=== PATIENT | female | born 1950 | race African-American/Black ===

== ENCOUNTER → 2019-06-25 | Outpatient (CLI) | payer MEDICARE, MEDICAID ==
[~2019-06-25] MED LIST: CARV25TA47 MT; MEGE20TA6 MT; METO-385 MT; NIFE-32 PO
== END | disposition home or self-care (01) ==
LOC: EDBD → RAD 11:43
PROVIDERS: ATTEND Internal Medicine Nephrology
DX: M79.605 Pain in left leg (principal)
CPT/HCPCS: 93970

== ENCOUNTER 2019-07-17 21:15 | Inpatient (IN) | payer MEDICARE, MEDICAID ==
[~2019-07-17] VITALS: Ht 160 cm; Wt 48.5 kg
[2019-07-17 20:00] VITALS: BP 140/78
[2019-07-17 21:30] VITALS: BP 140/78
[2019-07-17] MEDS ORDERED: MORPHINE SULFATE 2 MG/ML CPJ (NOT FOR IM USE) IV PRN (22:45)
[2019-07-17] MEDS ORDERED: HYDRALAZINE 20MG/ML VIAL IV PRN (23:00)
[2019-07-17] MEDS ORDERED: ONDANSETRON HCL 4MG/2ML INJ IV PRN (23:00)
[2019-07-17] MEDS ORDERED: GUAIFENESIN 200MG/10ML SUGAR FREE UDC PO PRN (23:00)
[2019-07-17] MEDS ORDERED: MAGNESIUM/ALUMINUM HYDROXIDE/SIMETHICONE 30ML UDC PO PRN (23:00)
[2019-07-17] MEDS ORDERED: IPRATROPIUM/ALBUTEROL 0.5-3(2.5)MG/3ML NEB HHN PRN (23:00)
[2019-07-17] MEDS ORDERED: CLONIDINE 0.1MG TABLET PO PRN (23:00)
[2019-07-17] MEDS ORDERED: HYDRALAZINE 10 MG in SODIUM CHLORIDE 0.9% 49.5 ML IV PRN (23:30)
[2019-07-17] MEDS ORDERED: DIPHENHYDRAMINE 25MG CAPSULE PO PRN (23:30)
[2019-07-18] MEDS: DILTIAZEM HCL 30MG TABLET PO SCH ×5 (00:50→23:51)
[2019-07-18] MEDS: POTASSIUM CHLORIDE INJ 10 MEQ in SODIUM CHLORIDE 0.9% 1,000 ML IV SCH ×2 (00:50→14:00)
[2019-07-18] MEDS: IPRATROPIUM/ALBUTEROL 0.5-3(2.5)MG/3ML NEB HHN SCH ×4 (01:04→21:58)
[2019-07-18] MEDS: ACETAMINOPHEN 325MG TABLET PO PRN ×2 (01:10→22:54)
[2019-07-18] MEDS: HYDROCODONE/ACETAMINOPHEN 10/325MG TABLET PO PRN ×3 (05:50→19:55)
[2019-07-18] MEDS: GABAPENTIN 100MG CAPSULE PO SCH ×3 (05:50→21:30)
[2019-07-18] MEDS: OMEPRAZOLE 20MG CAPSULE EXTENDED RELEASE PO SCH (06:50)
[2019-07-18 07:09] LABS: HEMATOCRIT. 30.4 % (36.0-48.0); HEMOGLOBIN. 10.5 g/dL (12.0-16.0); MEAN CORPUSCULAR HEMOGLOBIN 34.6 pg (28.0-32.0); MEAN CORPUSCULAR VOLUME 100.3 fL (81.0-99.0); MEAN PLATELET VOLUME 9.9 fl (7.4-10.4); PLATELET 118 x1000/uL (130-400); RED BLOOD CELL COUNT 3.03 mill/uL (4.2-5.4); RED CELL DISTRIBUTION WIDTH 15.2 % (11.6-14.6)
[2019-07-18 07:18] LABS: CHLORIDE 106 mEq/L (98-107)
[2019-07-18 07:26] LABS: PHOSPHORUS 2.5 mg/dL (2.5-4.9)
[2019-07-18 08:16] VITALS: BP 114/61
[2019-07-18] MEDS: GUAIFENESIN 600MG ER TABLET PO SCH ×2 (09:51→21:29)
[2019-07-18] MEDS: METHIMAZOLE 5MG TABLET PO SCH (09:52)
[2019-07-18] MEDS: FUROSEMIDE 20MG TABLET PO SCH ×2 (09:52→21:30)
[2019-07-18] MEDS: BENAZEPRIL 10MG TABLET PO SCH ×2 (09:53→21:29)
[2019-07-18] MEDS: DEXAMETHASONE 4MG TABLET PO SCH ×3 (09:53→16:21)
[2019-07-18] MEDS: POTASSIUM CHLORIDE 20MEQ TABLET SR PO SCH ×2 (09:53→16:21)
[2019-07-18] MEDS: CARVEDILOL 12.5MG TABLET PO SCH ×2 (09:53→22:54)
[2019-07-18 10:13] LABS: PLATELET ESTIMATE SLIGHTLY DECREASED
[2019-07-18] MEDS ORDERED: NA PHOS,M-B/NA PHOS,DI-BA ENEMA 118ML PR ONE (11:45)
[2019-07-18] MEDS ORDERED: LACTULOSE 20G/30ML UDC PO PRN (13:00)
[2019-07-18] MEDS: LACTULOSE 20G/30ML UDC PO SCH ×2 (16:21→19:56)
[2019-07-18 20:00] VITALS: BP 126/67
[2019-07-19] MEDS: LACTULOSE 20G/30ML UDC PO SCH
[2019-07-19] MEDS: POTASSIUM CHLORIDE INJ 10 MEQ in SODIUM CHLORIDE 0.9% 1,000 ML IV SCH ×2 (01:46→13:06)
[2019-07-19] MEDS: ACETAMINOPHEN 325MG TABLET PO PRN (04:29)
[2019-07-19] MEDS: HYDROCODONE/ACETAMINOPHEN 10/325MG TABLET PO PRN ×2 (05:50→15:23)
[2019-07-19] MEDS: GABAPENTIN 100MG CAPSULE PO SCH ×3 (05:50→21:03)
[2019-07-19] MEDS: OMEPRAZOLE 20MG CAPSULE EXTENDED RELEASE PO SCH (07:01)
[2019-07-19] MEDS: DILTIAZEM HCL 30MG TABLET PO SCH ×4 (07:04→23:15)
[2019-07-19 08:05] VITALS: BP 146/69
[2019-07-19] MEDS: CARVEDILOL 12.5MG TABLET PO SCH ×2 (09:32→21:02)
[2019-07-19] MEDS: GUAIFENESIN 600MG ER TABLET PO SCH ×2 (09:32→21:03)
[2019-07-19] MEDS: FUROSEMIDE 20MG TABLET PO SCH ×2 (09:32→21:02)
[2019-07-19] MEDS: POTASSIUM CHLORIDE 20MEQ TABLET SR PO SCH ×2 (09:32→17:00)
[2019-07-19] MEDS: BENAZEPRIL 10MG TABLET PO SCH ×2 (09:32→21:02)
[2019-07-19] MEDS: DOCUSATE SODIUM 100MG CAPSULE PO SCH (09:33)
[2019-07-19] MEDS: METHIMAZOLE 5MG TABLET PO SCH (09:33)
[2019-07-19] MEDS: DEXAMETHASONE 4MG TABLET PO SCH ×3 (09:33→17:36)
[2019-07-19 10:45] VITALS: BP 125/65
[2019-07-19] MEDS ORDERED: HYDROCODONE/ACETAMINOPHEN 5/325MG TABLET PO PRN (11:00)
[2019-07-19 14:40] VITALS: BP 136/70
[2019-07-19 20:00] VITALS: BP 155/76
[2019-07-19] MEDS: MORPHINE SULFATE 15MG TABLET SR PO SCH (21:03)
[2019-07-19] MEDS: IPRATROPIUM/ALBUTEROL 0.5-3(2.5)MG/3ML NEB HHN SCH (22:26)
[2019-07-19] MEDS: OXYCODONE HCL 5MG TABLET PO PRN (23:07)
[2019-07-20] MEDS: POTASSIUM CHLORIDE INJ 10 MEQ in SODIUM CHLORIDE 0.9% 1,000 ML IV SCH ×2 (00:52→12:34)
[2019-07-20] MEDS: IPRATROPIUM/ALBUTEROL 0.5-3(2.5)MG/3ML NEB HHN SCH ×4 (03:00→20:52)
[2019-07-20] MEDS: OXYCODONE HCL 5MG TABLET PO PRN (03:07)
[2019-07-20] MEDS: MORPHINE SULFATE 4 MG/ML CPJ (NOT FOR IM USE) IV PRN ×2 (04:27→12:35)
[2019-07-20] MEDS: GABAPENTIN 100MG CAPSULE PO SCH ×3 (06:01→21:34)
[2019-07-20] MEDS: OMEPRAZOLE 20MG CAPSULE EXTENDED RELEASE PO SCH (06:01)
[2019-07-20] MEDS: DILTIAZEM HCL 30MG TABLET PO SCH ×3 (06:02→18:03)
[2019-07-20 07:05] LABS: HEMATOCRIT. 26.7 % (36.0-48.0); HEMOGLOBIN. 9.3 g/dL (12.0-16.0); MEAN CORPUSCULAR HEMOGLOBIN 34.5 pg (28.0-32.0); MEAN CORPUSCULAR VOLUME 99.2 fL (81.0-99.0); MEAN PLATELET VOLUME 9.4 fl (7.4-10.4); PLATELET 109 x1000/uL (130-400); RED BLOOD CELL COUNT 2.69 mill/uL (4.2-5.4); RED CELL DISTRIBUTION WIDTH 14.5 % (11.6-14.6)
[2019-07-20 07:28] LABS: CHLORIDE 103 mEq/L (98-107)
[2019-07-20 07:35] LABS: PHOSPHORUS 2.4 mg/dL (2.5-4.9)
[2019-07-20 08:00] VITALS: BP 160/67
[2019-07-20] MEDS: DOCUSATE SODIUM 100MG CAPSULE PO SCH (09:09)
[2019-07-20] MEDS: CARVEDILOL 12.5MG TABLET PO SCH ×2 (09:09→21:35)
[2019-07-20] MEDS: GUAIFENESIN 600MG ER TABLET PO SCH ×2 (09:09→21:35)
[2019-07-20] MEDS: FUROSEMIDE 20MG TABLET PO SCH ×2 (09:09→21:35)
[2019-07-20] MEDS: DEXAMETHASONE 4MG TABLET PO SCH ×3 (09:09→18:02)
[2019-07-20] MEDS: BENAZEPRIL 10MG TABLET PO SCH (09:09)
[2019-07-20] MEDS: POTASSIUM CHLORIDE 20MEQ TABLET SR PO SCH ×2 (09:09→18:02)
[2019-07-20] MEDS: METHIMAZOLE 5MG TABLET PO SCH (09:09)
[2019-07-20] MEDS: MORPHINE SULFATE 15MG TABLET SR PO SCH ×2 (09:10→20:50)
[2019-07-20 10:15] LABS: HEPATITIS B SURFACE ANTIGEN NEGATIVE
[2019-07-20 10:45] LABS: HEPATITIS A AB IGM NEGATIVE (NEGATIVE)
[2019-07-20 14:41] LABS: NUCLEATED RED BLOOD CELLS 1 /100 WBC
[2019-07-20 14:42] LABS: PLATELET ESTIMATE SLIGHTLY DECREASED
[2019-07-20 20:00] VITALS: BP 154/74
[2019-07-21] MEDS: BENAZEPRIL 10MG TABLET PO SCH ×3 (00:01→20:57)
[2019-07-21] MEDS: IPRATROPIUM/ALBUTEROL 0.5-3(2.5)MG/3ML NEB HHN SCH ×4 (01:29→20:52)
[2019-07-21] MEDS: POTASSIUM CHLORIDE INJ 10 MEQ in SODIUM CHLORIDE 0.9% 1,000 ML IV SCH ×2 (02:36→12:50)
[2019-07-21] MEDS: DILTIAZEM HCL 30MG TABLET PO SCH ×5 (06:27→23:23)
[2019-07-21] MEDS: GABAPENTIN 100MG CAPSULE PO SCH ×3 (06:27→21:47)
[2019-07-21] MEDS: OMEPRAZOLE 20MG CAPSULE EXTENDED RELEASE PO SCH (06:27)
[2019-07-21 06:36] LABS: HEMATOCRIT. 28.6 % (36.0-48.0); HEMOGLOBIN. 9.9 g/dL (12.0-16.0); MEAN CORPUSCULAR VOLUME 101.4 fL (81.0-99.0); PLATELET 112 x1000/uL (130-400); RED BLOOD CELL COUNT 2.82 mill/uL (4.2-5.4); RED CELL DISTRIBUTION WIDTH 15.1 % (11.6-14.6)
[2019-07-21 07:09] LABS: CHLORIDE 104 mEq/L (98-107)
[2019-07-21 08:20] VITALS: BP 132/71
[2019-07-21] MEDS: DEXAMETHASONE 4MG TABLET PO SCH ×3 (08:35→17:19)
[2019-07-21] MEDS: DOCUSATE SODIUM 100MG CAPSULE PO SCH (08:35)
[2019-07-21] MEDS: POTASSIUM CHLORIDE 20MEQ TABLET SR PO SCH ×2 (08:36→17:19)
[2019-07-21] MEDS: GUAIFENESIN 600MG ER TABLET PO SCH ×2 (08:36→20:57)
[2019-07-21] MEDS: FUROSEMIDE 20MG TABLET PO SCH (08:36)
[2019-07-21] MEDS: METHIMAZOLE 5MG TABLET PO SCH (08:36)
[2019-07-21] MEDS: CARVEDILOL 12.5MG TABLET PO SCH ×2 (08:37→20:57)
[2019-07-21] MEDS: MORPHINE SULFATE 15MG TABLET SR PO SCH ×2 (08:38→20:56)
[2019-07-21] MEDS ORDERED: HYDROCODONE/ACETAMINOPHEN 10/325MG TABLET PO PRN (19:45)
[2019-07-21 20:00] VITALS: BP 141/67
[2019-07-21] MEDS ORDERED: BISACODYL 5MG TABLET PO PRN (21:00)
[2019-07-22] MEDS: IPRATROPIUM/ALBUTEROL 0.5-3(2.5)MG/3ML NEB HHN SCH ×4 (03:01→20:54)
[2019-07-22 05:24] LABS: PLATELET ESTIMATE SLIGHTLY DECREASED
[2019-07-22] MEDS: DILTIAZEM HCL 30MG TABLET PO SCH ×3 (06:09→23:29)
[2019-07-22] MEDS: GABAPENTIN 100MG CAPSULE PO SCH ×3 (06:09→21:32)
[2019-07-22 06:10] VITALS: BP 127/67
[2019-07-22] MEDS: OMEPRAZOLE 20MG CAPSULE EXTENDED RELEASE PO SCH (06:10)
[2019-07-22] MEDS: METHIMAZOLE 5MG TABLET PO SCH (08:18)
[2019-07-22] MEDS: DOCUSATE SODIUM 100MG CAPSULE PO SCH (08:18)
[2019-07-22] MEDS: LACTULOSE 20G/30ML UDC PO PRN ×2 (08:18→18:00)
[2019-07-22] MEDS: BENAZEPRIL 10MG TABLET PO SCH ×2 (08:21→20:02)
[2019-07-22] MEDS: DEXAMETHASONE 4MG TABLET PO SCH ×3 (08:21→17:22)
[2019-07-22] MEDS: GUAIFENESIN 600MG ER TABLET PO SCH ×2 (08:21→20:02)
[2019-07-22] MEDS: POTASSIUM CHLORIDE 20MEQ TABLET SR PO SCH ×2 (08:21→17:22)
[2019-07-22] MEDS: CARVEDILOL 12.5MG TABLET PO SCH ×2 (08:22→20:03)
[2019-07-22] MEDS: MORPHINE SULFATE 15MG TABLET SR PO SCH ×2 (08:25→20:03)
[2019-07-22 08:38] VITALS: BP 123/55
[2019-07-22] MEDS ORDERED: OXYCODONE HCL 5MG TABLET PO PRN (15:15)
[2019-07-22 20:00] VITALS: BP 148/64
[2019-07-22 21:30] VITALS: BP 114/64
[2019-07-22 23:30] VITALS: BP 109/62
[2019-07-23] MEDS: IPRATROPIUM/ALBUTEROL 0.5-3(2.5)MG/3ML NEB HHN SCH (02:28)
[2019-07-23 03:48] LABS: BG BASE EXCESS -7.4 mmol/L (-2.0-2.0); BG CARBOXYHEMOGLOBIN 0.3 % (0.5-1.5); BG DEOXYHEMOGLOBIN 9.9 % (0.0-5.0); BG FRACTION INSPIRED OXYGEN 2; BG HCO3 ACT 15.4 mmol/L (22.0-26.0); BG METHEMOGLOBIN 0.4 % (0.0-1.5); BG OXYHEMOGLOBIN 89.4 % (94.0-97.0); BG PCO2 22.7 mmHg (35.0-45.0); BG PH 7.449 (7.350-7.450); BG PO2 66.7 mmHg (75.0-100.0); BG SAMPLE SITE RIGHT BRACHIAL; BG TOTAL HEMOGLOBIN 8.7 g/dL (12.0-18.0); BG VENT MODE NASAL CANNULA
[2019-07-23 04:06] VITALS: BP 117/54
[2019-07-23 07:11] LABS: 25-HYDROXY VITAMIN D3 26 ng/mL (.)
== END 2019-07-23 04:46 | disposition short-term general hospital (02) | DRG 70 ==
LOC: 3WST 07-23 04:08
PROVIDERS: ADMIT Physical Medicine & Rehabilitation Spinal Cord Injury Medicine; ATTEND Internal Medicine
DX: G93.41 Metabolic encephalopathy (principal); J18.9 Pneumonia, unspecified organism; E43 Unspecified severe protein-calorie malnutrition; G82.50 Quadriplegia, unspecified; A41.9 Sepsis, unspecified organism; N18.6 End stage renal disease; J44.0 Chronic obstructive pulmonary disease with (acute) lower respiratory infection; C79.51 Secondary malignant neoplasm of bone; I31.3 Pericardial effusion (noninflammatory); I47.1 Supraventricular tachycardia; J96.10 Chronic respiratory failure, unspecified whether with hypoxia or hypercapnia; C78.7 Secondary malignant neoplasm of liver and intrahepatic bile duct; I12.0 Hypertensive chronic kidney disease with stage 5 chronic kidney disease or end stage renal disease; Z68.1 Body mass index [BMI] 19.9 or less, adult; E83.52 Hypercalcemia; E86.0 Dehydration; G62.9 Polyneuropathy, unspecified; E87.6 Hypokalemia; E05.90 Thyrotoxicosis, unspecified without thyrotoxic crisis or storm; E83.42 Hypomagnesemia; M54.32 Sciatica, left side; D69.6 Thrombocytopenia, unspecified; D64.9 Anemia, unspecified; E83.39 Other disorders of phosphorus metabolism; M06.9 Rheumatoid arthritis, unspecified; M47.812 Spondylosis without myelopathy or radiculopathy, cervical region; M48.02 Spinal stenosis, cervical region; M48.061 Spinal stenosis, lumbar region without neurogenic claudication; M51.26 Other intervertebral disc displacement, lumbar region; R53.81 Other malaise; I67.1 Cerebral aneurysm, nonruptured; I95.9 Hypotension, unspecified; N28.1 Cyst of kidney, acquired; M51.27 Other intervertebral disc displacement, lumbosacral region; Z66 Do not resuscitate; Z87.891 Personal history of nicotine dependence; Z99.81 Dependence on supplemental oxygen; Z92.3 Personal history of irradiation; Z85.118 Personal history of other malignant neoplasm of bronchus and lung
CPT/HCPCS: 36415; 36600; 76705; 80048; 80053; 82306; 82375; 82805; 82962; 83735; 84100; 84134; 85025; 86705; 86709; 86803; 87340; 92523; 92610; 93970; 94640; 97110; 97116; 97140; 97162; 97166; 97530; 97535; J2270; J3480; J7030; J8540; Q0163